=== PATIENT | female | born 1995 | race Caucasian/White ===

== ENCOUNTER 2017-04-08 10:39 | Inpatient (IN) ==
[2017-04-08] MEDS ORDERED: PROMETHAZINE 25 MG/1 ML VIAL IM PRN (13:23)
[2017-04-08] MEDS: LACTATED RINGERS 1,000 ML IV SCH ×2 (13:37→18:56)
[2017-04-08] MEDS: ONDANSETRON 4 MG/2 ML VIAL IV SCH ×3 (13:40→21:16)
[2017-04-08 14:11] LABS: Basophils % 0.1 % (0.0-0.8); Eosinophils # 0.2 10*3/uL (0.0-0.87); Eosinophils % 1.9 % (0.00-10.9); Hematocrit 35.1 VOL% (35.7-47.0); Immature Granulocytes % 0.5 %; Immature Granulocytes Absolute 0.05 #; Lymphocytes # 2.2 10*3/uL (1.4-4.0); Lymphocytes % 23.5 % (21.3-54.2); Mean Corpuscular HGB Conc 34.2 GM/DL (32-36); Mean Corpuscular Hemoglobin 29 PG (27-34); Mean Corpuscular Volume 84.6 FL (87-102); Mean Platelet Volume 10.5 FL (9.6-12.0); Monocytes # 0.6 10*3/uL (0.11-0.8); Monocytes % 6.7 % (1.7-12.7); Neutrophils # 6.4 10*3/uL (1.4-7.4); Neutrophils % 67.3 % (38.7-73.9); Platelet Count 260 T/CUMM (130-400); Red Blood Count 4.15 MC/CUMM (3.8-5.5); Red Cell Distribution Width 14.2 % (9.3-17.3); White Blood Count 9.5 T/CUMM (4-12)
[2017-04-08 14:31] LABS: Albumin 3.4 G/DL (3.4-5.0); Bilirubin,Total 0.8 MG/DL (0.2-1.0); Calcium 9.7 MG/DL (8.5-10.1); Osmolality,Calculated 270.7 MOS/KG (273-304); Potassium 4.1 MMOL/L (3.5-5.1); Total Protein 6.9 G/DL (6.4-8.3)
--- NOTE | 2017-04-08 16:26 | Ultrasound Report ---
Exam: US OB >= 14 weeks fetus Date: 04/08/2017 1:20 PM Indication: SGA, viability, care Comparison: March 23, 2017 Findings: Single intrauterine gestation in the breech position. Cord not visualized. Posterior placenta. Estimated age of 13 weeks 1 day with crown-rump length measuring 7.0 cm. Amniotic fluid index: Within normal limits Cervical length: 3.8 cm heart rate: 1 64 bpm structures: No gross congenital abnormality. Heart cannot be fully visualized Maternal ovaries left ovary is unremarkable. Right ovary nonvisualized. Ultrasound images were captured and stored. Impression: 1. Viable intrauterine gestation with estimated age of 13 weeks 1 day and expected delivery date of September 27, 2017. 2. Poor visualization of the cardiac chambers secondary to gestational age and position. Routine follow-up is suggested PROCEDURE INTERPRETED AT [facility] DEPARTMENT OF RADIOLOGY Final Report Signed by: Amado Dougherty MD
--- NOTE | 2017-04-08 18:20 | OB/GYN History & Physical ---
History of Present Illness Chief complaint: Hyperemesis gravidarum History of present illness: Ms. Perez is a 21 year old female 1 para 0 at 13 weeks and 1 day who presents with excessive nausea and vomiting. Patient was admitted to the emergency room. Received IV fluids and Zofran and sips of water. Patient's feeling approximately 50% better, but with no evidence at this time of emesis. Ultrasound was obtained demonstrated cardiac activity at approximately 13 weeks gestation. Chemistry and electrolytes have been also been ordered and will follow this up as well. Presently we will continue with IV fluids antiemetics and observe over the next 24-36 hours. Home Medications Medication Instructions Recorded Confirmed Type Multivitamin () [ 1 tablet PO DAILY 04/07/17 04/08/17 History Vitamin] Ondansetron Tab [Zofran Tab] 4 mg PO Q6HR 04/07/17 04/08/17 History Promethazine Tab [Phenergan Tab] 25 mg PO Q6H 04/07/17 04/08/17 History Allergies Allergy/AdvReac Type Severity Reaction Status Date / Time egg Allergy Intermediate RASH Verified 04/07/17 20:10 Medical,Surgical,& Family Hx - Surgical History Reproductive Surgeries: Surgical HX of;: Gynecologic Surgery (Diagnostic lap for endometriosis) Orthopedic Surgeries: Surgical HX of;: Orthopedic Surgery (Right knee repair) - Family History Family History: Reports;: Family Hypertension (Father) - Social History Smoking Status: Never smoker Frequency of Alcohol Use: None 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 - Constitutional Vitals: Vital Signs Temp Pulse Resp BP Pulse Ox 04/08/17 15:54 98.6 F 82 18 109/66 98 04/08/17 13:15 98.7 F 95 H 20 110/64 100 General appearance: normal weight - Head Head exam: Present: normal inspection - Eye Eye exam: Present: EOMI Pupils: Present: MIL - ENT ENT exam: Present: normal exam - Neck Neck exam: Present: normal inspection - Respiratory Respiratory exam: Present: clear to auscultation bilaterally - Breast Breasts: as per HPI Menstruation: as per HPI - Cardiovascular Cardiovascular exam: Present: regular rate and rhythm - GI/Abdominal GI/Abdominal exam: Present: normal bowel sounds - Extremities Exam Extremities exam: Present: normal inspection - Back Exam Back exam: Present: normal inspection - Neurological Exam Neurological exam: Present: alert - Psychiatric Psychiatric exam: Present: normal affect - Skin Skin exam: Present: normal color Assessment and Plan (1) Hyperemesis Status: Acute Assessment and plan: IV fluids, antiemetics, n.p.o. at the present time Current Visit: Yes Results - Labs CBC & BMP: 04/08/17 13:45 04/08/17 13:45
[2017-04-08] MEDS: ACETAMINOPHEN 325 MG TABLET PO PRN (22:13)
[2017-04-09] MEDS: ONDANSETRON 4 MG/2 ML VIAL IV SCH ×3 (01:40→09:05)
[2017-04-09] MEDS: LACTATED RINGERS 1,000 ML IV SCH ×3 (03:21→22:54)
[2017-04-09] MEDS ORDERED: ONDANSETRON 4 MG/2 ML VIAL IV PRN (13:59)
[2017-04-09] MEDS: METOCLOPRAMIDE 10 MG/2 ML VIAL IV SCH (19:50)
[2017-04-09] MEDS ORDERED: METOCLOPRAMIDE 10 MG/2 ML VIAL IV PRN (20:00)
[2017-04-10] MEDS: METOCLOPRAMIDE 10 MG/2 ML VIAL IV SCH ×3 (04:32→19:42)
[2017-04-10] MEDS: LACTATED RINGERS 1,000 ML IV SCH ×2 (09:32→21:04)
--- NOTE | 2017-04-10 11:52 | Progress Note ---
Assessment and Plan (1) Hyperemesis Status: Acute Assessment and plan: IV fluids, antiemetics, n.p.o. at the present time Current Visit: Yes Family Medicine PN Sub Interval history: Second day of hyperemesis. Patient is doing much better tolerating clear liquids. Will advance her diet to soft diet. We will continue with the Reglan Phenergan and Zofran. Once patient is tolerating her diet will then plan on discharge. Exam (Progress Note) - Constitutional Vitals: Period Temp Pulse Resp BP Sys/Angel Pulse Ox Last 24 Hr 97.6 F-98.5 F 73-106 18-18 90-113/46-61 97-99 Results - Labs CBC & BMP: 04/08/17 13:45 04/08/17 13:45 Specialty Discharge - Follow Up or Referrals Follow up with: Gisela Wilson MD [Physician] -
[2017-04-10] MEDS: ACETAMINOPHEN 325 MG TABLET PO PRN (21:39)
[2017-04-11] MEDS: METOCLOPRAMIDE 10 MG/2 ML VIAL IV SCH ×2 (03:55→11:31)
[2017-04-11] MEDS ORDERED: LACTATED RINGERS 1,000 ML IV SCH (09:30)
--- NOTE | 2017-04-11 11:06 | OB/GYN Progress Note ---
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 No nausea with reglan. 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
[2017-04-11] MEDS ORDERED: METOCLOPRAMIDE 10 MG TABLET PO SCH (12:00)
[2017-04-11 15:25] VITALS: BP 103/65
== END 2017-04-11 15:15 | disposition home or self-care (01) | DRG 566 ==
LOC: N.OB
PROVIDERS: ADMIT Obstetrics & Gynecology; ATTEND Obstetrics & Gynecology

== ENCOUNTER 2017-09-14 18:37 | Inpatient (IN) ==
[2017-09-14] MEDS ORDERED: ceFAZolin 2,000 MG in PREMIX 1 EACH IV ONE (18:52)
[2017-09-14] MEDS ORDERED: FAMOTIDINE 20 MG/2 ML VIAL IV ONE (18:52)
[2017-09-14] MEDS ORDERED: CITRIC ACID/SODIUM CITRATE 30 ML UDCUP PO ONE (18:52)
[2017-09-14] MEDS ORDERED: OXYTOCIN 10 UNIT/ML VIAL IM ONE (18:55)
[2017-09-14] MEDS ORDERED: OXYTOCIN/LR 20 UNIT/1,000 ML BAG IV ONE ×2 (18:55→23:52)
[2017-09-14] MEDS ORDERED: OXYTOCIN/LR 30 UNIT/1,000 ML BAG IV ONE (18:55)
[2017-09-14] MEDS ORDERED: LACTATED RINGERS 1,000 ML IV SCH ×2 (19:00→23:52)
[2017-09-14] MEDS ORDERED: LIDOCAINE MPF 2% /EPI 20 ML VIAL ONE ×2 (19:19→21:16)
[2017-09-14 19:39] LABS: Basophils % 0.2 % (0.0-0.8); Eosinophils # 0.1 10*3/uL (0.0-0.87); Hematocrit 31.2 VOL% (35.7-47.0); Hemoglobin 9.7 GM/DL (12.0-16.0); Immature Granulocytes % 0.9 %; Immature Granulocytes Absolute 0.11 #; Lymphocytes # 2.8 10*3/uL (1.4-4.0); Lymphocytes % 22.2 % (21.3-54.2); Mean Corpuscular HGB Conc 31.1 GM/DL (32-36); Mean Corpuscular Hemoglobin 23 PG (27-34); Mean Corpuscular Volume 73.9 FL (87-102); Mean Platelet Volume 11.3 FL (9.6-12.0); Monocytes # 0.9 10*3/uL (0.11-0.8); NRBC # 0.03 10*3/uL; Neutrophils # 8.6 10*3/uL (1.4-7.4); Neutrophils % 68.7 % (38.7-73.9); Platelet Count 333 T/CUMM (130-400); Red Blood Count 4.22 MC/CUMM (3.8-5.5); Red Cell Distribution Width 16.7 % (9.3-17.3); White Blood Count 12.6 T/CUMM (4-12)
[2017-09-14 19:50] LABS: INR 0.9; PT Patient Result 9.1 SECS; Partial Thromboplastin Time 25.1 SECS (0-40)
[2017-09-14 20:04] LABS: Albumin 2.7 G/DL (3.4-5.0); Bilirubin,Total 0.7 MG/DL (0.2-1.0); Calcium 8.3 MG/DL (8.5-10.1); Osmolality,Calculated 276.4 MOS/KG (273-304); Potassium 4.2 MMOL/L (3.5-5.1); Total Protein 6.7 G/DL (6.4-8.3)
[2017-09-14] MEDS ORDERED: MORPHINE 10 MG/10 ML VIAL ONE (21:15)
[2017-09-14] MEDS ORDERED: MIDAZOLAM 2 MG/2 ML VIAL ONE (21:15)
[2017-09-14] MEDS ORDERED: ONDANSETRON 4 MG/2 ML VIAL ONE (21:15)
[2017-09-14 21:25] LABS: Cord Arterial Blood HCO3 21.3 MMOL/L
[2017-09-14 21:27] LABS: Cord Venous Blood PCO2 44.4 MMHG; Cord Venous Blood PO2 22.7
[2017-09-14 21:54] LABS: Apearance,Urine CLEAR (Clear); Bilirubin,Urine Negative (Negative); Blood, Urine Negative (Negative); Glucose,Urine (UA) Negative (Negative); Ketones,Urine Negative (Negative); Mucus,Urine Occasional /LPF (Occasional); Nitrite,Urine Negative (Negative); Protein,Urine 30 MG/DL; RBC,Urine 4 /HPF (0-4); Urine Color Yellow (Yellow); Urine Specific Gravity 1.016 (1.001-1.035); WBC,Urine 1 /HPF (0-6)
[2017-09-14] MEDS ORDERED: SIMETHICONE CHEW 80 MG TABLET PO PRN (23:52)
[2017-09-14] MEDS ORDERED: MAGNESIUM HYDROXIDE SUSP 30 ML UDCUP PO PRN (23:52)
[2017-09-14] MEDS ORDERED: ONDANSETRON 4 MG/2 ML VIAL IV PRN (23:52)
[2017-09-14] MEDS ORDERED: ACETAMINOPHEN 325 MG TABLET PO PRN (23:52)
[2017-09-14] MEDS ORDERED: RHO(D) IMMUNE GLOBULIN 300 MCG SYRINGE IM ONE (23:52)
[2017-09-15] MEDS: IBUPROFEN 800 MG TABLET PO PRN ×3 (00:27→22:35)
[2017-09-15] MEDS ORDERED: ceFAZolin 1,000 MG in SYRINGE 1 EACH IV SCH (04:20)
[2017-09-15 06:58] LABS: Basophils % 0.2 % (0.0-0.8); Eosinophils # 0.1 10*3/uL (0.0-0.87); Eosinophils % 0.7 % (0.00-10.9); Hematocrit 25.6 VOL% (35.7-47.0); Hemoglobin 7.6 GM/DL (12.0-16.0); Immature Granulocytes % 0.7 %; Immature Granulocytes Absolute 0.09 #; Lymphocytes # 2.7 10*3/uL (1.4-4.0); Lymphocytes % 19.6 % (21.3-54.2); Mean Corpuscular HGB Conc 29.7 GM/DL (32-36); Mean Corpuscular Hemoglobin 23 PG (27-34); Mean Platelet Volume 10.9 FL (9.6-12.0); Monocytes # 0.8 10*3/uL (0.11-0.8); Monocytes % 5.5 % (1.7-12.7); NRBC # 0.02 10*3/uL; Neutrophils # 10.1 10*3/uL (1.4-7.4); Neutrophils % 73.3 % (38.7-73.9); Platelet Count 239 T/CUMM (130-400); Red Blood Count 3.37 MC/CUMM (3.8-5.5); Red Cell Distribution Width 16.5 % (9.3-17.3); White Blood Count 13.7 T/CUMM (4-12)
[2017-09-15] MEDS: MULTIVITAMIN (PRENATAL) TABLET PO SCH (08:51)
[2017-09-15] MEDS: DOCUSATE SODIUM 100 MG CAPSULE PO SCH ×2 (08:52→21:31)
[2017-09-15] MEDS ORDERED: SODIUM CHLORIDE 0.9% 1,000 ML IV PRN (11:43)
[2017-09-15] MEDS ORDERED: diphenhydrAMINE CAP 25 MG CAPSULE PO PRN (11:53)
[2017-09-15] MEDS: FERROUS SULFATE 325 MG TABLET PO SCH ×2 (17:27→21:31)
[2017-09-16 07:37] VITALS: BP 129/80
[2017-09-16] MEDS: FERROUS SULFATE 325 MG TABLET PO SCH (09:32)
[2017-09-16] MEDS: MULTIVITAMIN (PRENATAL) TABLET PO SCH (09:33)
[2017-09-16] MEDS: DOCUSATE SODIUM 100 MG CAPSULE PO SCH (09:33)
== END 2017-09-16 13:05 | disposition home or self-care (01) | DRG 540 ==
LOC: N.LDOUT 18:37 → N.LD 18:39 → N.OB 09-15 10:11
PROVIDERS: ADMIT Obstetrics & Gynecology; ATTEND Obstetrics & Gynecology
PROC: LDCSECT (ICD-10-PCS; 2017-09-14 20:00)

== ENCOUNTER 2019-06-30 05:53 | Inpatient (IN) ==
[2019-06-30] MEDS ORDERED: ONDANSETRON 4 MG/2 ML VIAL IV PRN ×2 (06:02→09:49)
[2019-06-30] MEDS ORDERED: ceFAZolin 2,000 MG in PREMIX 1 EACH IV ONE (06:03)
[2019-06-30] MEDS ORDERED: FAMOTIDINE 20 MG/2 ML VIAL IV ONE (06:03)
[2019-06-30] MEDS ORDERED: OXYTOCIN/LR 30 UNIT/1,000 ML BAG IV ONE (06:03)
[2019-06-30] MEDS ORDERED: OXYTOCIN 10 UNIT/ML VIAL IM ONE (06:03)
[2019-06-30] MEDS ORDERED: CITRIC ACID/SODIUM CITRATE 30 ML UDCUP PO ONE (06:03)
[2019-06-30] MEDS: LACTATED RINGERS 1,000 ML IV SCH ×2 (06:32→10:53)
[2019-06-30 06:38] LABS: Basophils % 0.2 % (0.0-0.8); Eosinophils # 0.2 10*3/uL (0.0-0.87); Eosinophils % 1.3 % (0.00-10.9); Hematocrit 33.9 VOL% (35.7-47.0); Hemoglobin 10.4 GM/DL (12.0-16.0); Immature Granulocytes % 0.4 %; Immature Granulocytes Absolute 0.05 #; Lymphocytes # 2.8 10*3/uL (1.4-4.0); Lymphocytes % 24.1 % (21.3-54.2); Mean Corpuscular HGB Conc 30.7 GM/DL (32-36); Mean Corpuscular Volume 75.2 FL (87-102); Mean Platelet Volume 10.8 FL (9.6-12.0); Monocytes % 5.8 % (1.7-12.7); Neutrophils % 68.2 % (38.7-73.9); Platelet Count 283 T/CUMM (130-400); Red Blood Count 4.51 MC/CUMM (3.8-5.5); Red Cell Distribution Width 22.7 % (9.3-17.3); White Blood Count 11.6 T/CUMM (4-12)
[2019-06-30 06:55] LABS: Hypochromasia 1+; Platelet Estimate Adequate
[2019-06-30] MEDS ORDERED: miSOPROStoL 200 MCG TABLET ONE (07:00)
[2019-06-30] MEDS ORDERED: TRANEXAMIC ACID 1,000 MG/10 ML VIAL ONE (07:00)
[2019-06-30] MEDS ORDERED: OXYTOCIN/LR 20 UNIT/1,000 ML BAG IV ONE ×2 (07:00→09:49)
[2019-06-30 07:01] LABS: Albumin 2.7 G/DL (3.4-5.0); Bilirubin,Total 0.6 MG/DL (0.2-1.0); Calcium 8.8 MG/DL (8.5-10.1); Osmolality,Calculated 272.8 MOS/KG (273-304); Total Protein 7.4 G/DL (6.4-8.3)
[2019-06-30] MEDS ORDERED: CARBOPROST TROMETHAMINE 250 MCG/ML AMP IM ONE (07:01)
[2019-06-30] MEDS ORDERED: METHYLERGONOVINE 0.2 MG/1 ML AMP ONE (07:01)
[2019-06-30] MEDS ORDERED: ceFAZolin 1,000 MG in SYRINGE 1 EACH IV PRN (07:19)
[2019-06-30] MEDS ORDERED: DEXAMETHASONE 4 MG/1 ML VIAL ONE (07:35)
[2019-06-30] MEDS ORDERED: EPINEPHrine 1 MG/ML VIAL ONE (07:35)
[2019-06-30] MEDS ORDERED: BUPIVACAINE MPF 0.25% 30 ML VIAL ONE ×2 (07:35→10:39)
[2019-06-30 09:19] LABS: Cord Arterial Blood HCO3 20.5 MMOL/L
[2019-06-30 09:20] LABS: Amorphous Crystals,Urine Occasional /HPF (Few); Apearance,Urine CLEAR (Clear); Bacteria,Urine Occasional /HPF (Few); Bilirubin,Urine Negative (Negative); Blood, Urine Negative (Negative); Glucose,Urine (UA) Negative (Negative); Ketones,Urine Negative (Negative); Mucus,Urine Occasional /LPF (Occasional); Nitrite,Urine Negative (Negative); Protein,Urine Negative; RBC,Urine <1 /HPF (0-4); Squamous Epithelial Cell,Urine Occasional /HPF (0-10); Urine Color Straw (Yellow); Urine Specific Gravity 1.013 (1.001-1.035); Urine Urobilinogen < 2.0 EU/DL (0.2-1.0); WBC,Urine <1 /HPF (0-6)
[2019-06-30 09:22] LABS: Cord Venous Blood HCO3 22.1 MMOL/L; Cord Venous Blood PCO2 45.4 MMHG; Cord Venous Blood PO2 20.8
[2019-06-30] MEDS ORDERED: fentaNYL 100 MCG/2 ML VIAL ONE (09:22)
[2019-06-30] MEDS ORDERED: MORPHINE 10 MG/10 ML VIAL ONE (09:23)
[2019-06-30] MEDS ORDERED: PHENYLEPHRINE 1 MG/10 ML SYRINGE IV ONE (09:25)
[2019-06-30] MEDS ORDERED: BUPIVACAINE SPINAL 0.75% 2 ML AMP SPINAL ONE (09:25)
[2019-06-30] MEDS ORDERED: diphenhydrAMINE 50 MG/1 ML VIAL IV PRN (09:38)
[2019-06-30] MEDS ORDERED: ACETAMINOPHEN 325 MG TABLET PO PRN (09:49)
[2019-06-30] MEDS ORDERED: RHO(D) IMMUNE GLOBULIN 300 MCG SYRINGE IM ONE ×2 (09:49→10:30)
[2019-06-30] MEDS ORDERED: SIMETHICONE CHEW 80 MG TABLET PO PRN (09:49)
[2019-06-30] MEDS ORDERED: MAGNESIUM HYDROXIDE SUSP 30 ML UDCUP PO PRN (09:49)
[2019-06-30] MEDS ORDERED: LACTATED RINGERS 1,000 ML IV SCH (10:00)
[2019-06-30] MEDS ORDERED: HYDROmorphone 2 MG/1 ML VIAL IV ONE (12:41)
[2019-06-30] MEDS: ceFAZolin 1,000 MG in SYRINGE 1 EACH IV SCH (15:51)
[2019-06-30] MEDS ORDERED: diphenhydrAMINE 50 MG/1 ML VIAL ONE (18:34)
[2019-06-30 18:35] LABS: Basophils % 0.1 % (0.0-0.8); Hematocrit 31.8 VOL% (35.7-47.0); Hemoglobin 9.6 GM/DL (12.0-16.0); Immature Granulocytes % 0.6 %; Immature Granulocytes Absolute 0.11 #; Lymphocytes # 1.6 10*3/uL (1.4-4.0); Lymphocytes % 8.2 % (21.3-54.2); Mean Corpuscular HGB Conc 30.2 GM/DL (32-36); Mean Corpuscular Volume 76.8 FL (87-102); Mean Platelet Volume 10.9 FL (9.6-12.0); Monocytes % 2.6 % (1.7-12.7); Neutrophils % 88.5 % (38.7-73.9); Platelet Count 267 T/CUMM (130-400); Red Blood Count 4.14 MC/CUMM (3.8-5.5); Red Cell Distribution Width 22.6 % (9.3-17.3); White Blood Count 19.2 T/CUMM (4-12)
[2019-06-30] MEDS: IBUPROFEN 800 MG TABLET PO PRN (20:03)
[2019-06-30] MEDS: SERTRALINE 100 MG TABLET PO SCH (20:04)
[2019-06-30] MEDS: DOCUSATE SODIUM 100 MG CAPSULE PO SCH (20:04)
[2019-06-30] MEDS ORDERED: BISACODYL 10 MG SUPP RECTAL PRN (21:20)
[2019-06-30] MEDS: oxyCODONE/ACETAMINOPHEN 5-325 MG TABLET PO PRN (22:29)
[2019-07-01] MEDS: ceFAZolin 1,000 MG in SYRINGE 1 EACH IV SCH (00:30)
[2019-07-01] MEDS: oxyCODONE/ACETAMINOPHEN 5-325 MG TABLET PO PRN ×4 (04:25→22:56)
[2019-07-01] MEDS: IBUPROFEN 800 MG TABLET PO PRN ×3 (04:25→22:55)
[2019-07-01 06:08] LABS: Basophils % 0.1 % (0.0-0.8); Eosinophils # 0.1 10*3/uL (0.0-0.87); Eosinophils % 0.5 % (0.00-10.9); Hematocrit 29.3 VOL% (35.7-47.0); Hemoglobin 8.7 GM/DL (12.0-16.0); Immature Granulocytes % 0.4 %; Immature Granulocytes Absolute 0.06 #; Lymphocytes % 19.5 % (21.3-54.2); Mean Corpuscular HGB Conc 29.7 GM/DL (32-36); Mean Corpuscular Volume 77.5 FL (87-102); Mean Platelet Volume 10.5 FL (9.6-12.0); Monocytes % 4.4 % (1.7-12.7); Neutrophils % 75.1 % (38.7-73.9); Platelet Count 227 T/CUMM (130-400); Red Blood Count 3.78 MC/CUMM (3.8-5.5); Red Cell Distribution Width 22.5 % (9.3-17.3); White Blood Count 15.4 T/CUMM (4-12)
[2019-07-01 06:57] LABS: Anisocytosis 1+; Hypochromasia 1+; Tear Drop Cells Few
[2019-07-01 06:58] LABS: Platelet Estimate Normal
[2019-07-01] MEDS: DOCUSATE SODIUM 100 MG CAPSULE PO SCH ×2 (09:59→20:49)
[2019-07-01] MEDS: FERROUS SULFATE 325 MG TABLET PO SCH (10:00)
[2019-07-01] MEDS: METOCLOPRAMIDE 10 MG TABLET PO SCH ×2 (10:00→16:20)
[2019-07-01] MEDS: MULTIVITAMIN (PRENATAL) TABLET PO SCH (10:00)
[2019-07-01] MEDS: SERTRALINE 100 MG TABLET PO SCH (10:02)
[2019-07-01] MEDS: MAGNESIUM HYDROXIDE SUSP 30 ML UDCUP PO SCH ×2 (16:15→20:49)
[2019-07-02] MEDS: METOCLOPRAMIDE 10 MG TABLET PO SCH ×2 (05:55→07:45)
[2019-07-02] MEDS: MULTIVITAMIN (PRENATAL) TABLET PO SCH ×2 (07:45→14:20)
[2019-07-02] MEDS: DOCUSATE SODIUM 100 MG CAPSULE PO SCH ×2 (07:45→14:20)
[2019-07-02] MEDS: FERROUS SULFATE 325 MG TABLET PO SCH ×2 (07:45→14:20)
[2019-07-02] MEDS: MAGNESIUM HYDROXIDE SUSP 30 ML UDCUP PO SCH ×2 (07:45→14:20)
[2019-07-02] MEDS: SERTRALINE 100 MG TABLET PO SCH ×2 (07:45→14:21)
[2019-07-02] MEDS: oxyCODONE/ACETAMINOPHEN 5-325 MG TABLET PO PRN ×2 (07:47→13:52)
[2019-07-02 07:54] VITALS: BP 121/64
[2019-07-02] MEDS: IBUPROFEN 800 MG TABLET PO PRN (12:58)
== END 2019-07-02 14:55 | disposition home or self-care (01) | DRG 540 ==
LOC: N.LDOUT 05:53 → N.LD 05:54 → N.OB 12:31
PROVIDERS: ADMIT Obstetrics & Gynecology; ATTEND Obstetrics & Gynecology